=== PATIENT | female | born 1985 | race African-American/Black ===

== ENCOUNTER 2017-09-30 18:08 | Emergency (ER) | payer OTHER ==
[~2017-09-30] VITALS: Ht 154.9 cm; Wt 62.1 kg
[2017-09-30] MEDS ORDERED: HUMALOG100 UNIT/1 SC (18:50)
[2017-09-30] MEDS ORDERED: HUMULIN N100 UNITS/ SC (18:50)
[2017-09-30 19:03] VITALS: BP 125/70
== END 2017-09-30 19:03 | disposition home or self-care (01) ==
LOC: EME 18:08
DX: Z76.0 Encounter for issue of repeat prescription (principal); E11.9 Type 2 diabetes mellitus without complications; Z79.4 Long term (current) use of insulin
CPT/HCPCS: 99281; 99283

== ENCOUNTER 2017-11-11 09:24 | Emergency (ER) | payer OTHER ==
[~2017-11-11] VITALS: Ht 154.9 cm; Wt 52.1 kg
[~2017-11-11 09:24] MED LIST: HUMALOG100 UNIT/1 SC; HUMULIN N100 UNITS/ SC
[2017-11-11] MEDS ORDERED: PEN-VEE K,VEET500 MG PO (09:43)
[2017-11-11] MEDS ORDERED: MOTRIN600 MG PO (09:43)
[2017-11-11] MEDS ORDERED: ZOFRAN4 MG PO (09:43)
[2017-11-11] MEDS ORDERED: PERCOCET 5/31 TABLET PO (09:44)
[2017-11-11 10:01] VITALS: BP 123/89
== END 2017-11-11 10:01 | disposition home or self-care (01) ==
LOC: EME 09:24
DX: K08.89 Other specified disorders of teeth and supporting structures (principal); E11.9 Type 2 diabetes mellitus without complications; Z79.4 Long term (current) use of insulin
CPT/HCPCS: 99281; 99284